=== PATIENT | female | born 1975 | race American Indian/Alaskan Native ===

== ENCOUNTER 2019-09-01 00:54 | Inpatient (IN) | payer SELFPAY ==
[2019-09-01] MEDS ORDERED: IPRATROPIUM 0.02% NEBU 2.5 ML IH ONE (02:31)
[2019-09-01] MEDS ORDERED: LEVALBUTEROL 0.63 MG/3 ML NEBU IH ONE ×2 (02:31→02:46)
[2019-09-01] MEDS ORDERED: fentaNYL 100 MCG/2 ML INJ IV ONE (02:37)
[2019-09-01] MEDS ORDERED: NITROGLYCERIN 2% OINT 1 GM TP ONE (02:37)
[2019-09-01] MEDS ORDERED: ASPIRIN 325 MG TAB PO ONE (02:37)
[2019-09-01] MEDS ORDERED: ONDANSETRON 4 MG/2 ML INJ IV ONE (02:37)
--- NOTE | 2019-09-01 02:45 | Emergency Department Report ---
HPI - General Chief Complaint: Chest Pain Time Seen by Provider: 09/01/19 02:20 - HPI HPI: Room 1 The pt is a 44 y/o F p/w a cc of CP. The pt states she's had intermittent LUE numbness x 1 week. This evening the pt developed intermittent CP described as a tightness and as though something is sitting on her. Pt admits to SOB but denies n/v or diaphoresis. The pt had an PA with stent placement 3 years ago. Pt currntly gives her CP a score of 8/10 ED Past Medical Hx - Past Medical History Previous Medical History?: Yes Hx Hypertension: Yes Hx Heart Attack/AMI: Yes - Surgical History Past Surgical History?: Yes Additional Surgical History: Stent placement - Family History Family history: no significant - Social History Smoking Status: Current Every Day Smoker (/ ppd) Substance Use Type: None (denies illicit drug use) ED Review of Systems ROS: Stated complaint: CHEST PAIN Other details as noted in HPI Constitutional: denies: diaphoresis Eyes: denies: eye pain ENT: denies: throat pain Respiratory: cough, shortness of breath Cardiovascular: chest pain Endocrine: no symptoms reported Gastrointestinal: denies: nausea, vomiting Genitourinary: denies: dysuria Musculoskeletal: denies: back pain Neurological: denies: headache Physical Exam - Physical Exam Vital Signs: Vital Signs 09/01/19 01:05 Temperature 97.8 F Pulse Rate 77 Respiratory 18 Rate Blood Pressure 157/91 O2 Sat by Pulse 100 Oximetry Physical Exam: GEN: WD WN F lying on stretcher in NAD HEENT: EOMI NECK: Trachea midline LUNGS: wheezing bilat CV: RRR no m/r/g ABD: S/NT/ND SKIN: No Diaphoresis NEURO: GCS 15 MS: no evidence of acute injury ED Course Vital Signs 09/01/19 01:05 Temperature 97.8 F Pulse Rate 77 Respiratory 18 Rate Blood Pressure 157/91 O2 Sat by Pulse 100 Oximetry ED Medical Decision Making - Lab Data Result diagrams: 09/01/19 02:41 09/01/19 04:21 Laboratory Tests 09/01/19 09/01/19 09/01/19 02:41 02:41 02:41 WBC 9.9 RBC 5.02 Hgb 11.8 Hct 36.9 MCV 73 L MCH 24 L MCHC 32 RDW 20.8 H Plt Count 232 Lymph % (Auto) 17.9 [place] % (Auto) 5.2 Eos % (Auto) 4.0 Baso % (Auto) 0.9 Lymph # 1.8 [place] # 0.5 Eos # 0.4 Baso # 0.1 Seg Neutrophils % 72.0 H Seg Neutrophils # 7.1 PT 13.3 INR 1.04 APTT 23.5 L Sodium Potassium Chloride Carbon Dioxide Anion Gap BUN Creatinine Estimated GFR BUN/Creatinine Ratio Glucose Calcium Total Creatine Kinase CK-MB (CK-2) CK-MB (CK-2) Rel Index Troponin T NT-Pro-B Natriuret Pep HCG, Qual Negative 09/01/19 04:21 WBC RBC Hgb Hct MCV MCH MCHC RDW Plt Count Lymph % (Auto) [place] % (Auto) Eos % (Auto) Baso % (Auto) Lymph # [place] # Eos # Baso # Seg Neutrophils % Seg Neutrophils # PT INR APTT Sodium 141 Potassium 4.0 Chloride 105.3 Carbon Dioxide 27 Anion Gap 13 BUN 15 Creatinine 0.7 Estimated GFR > 60 BUN/Creatinine Ratio 21 Glucose 88 Calcium 8.5 Total Creatine Kinase 133 CK-MB (CK-2) 3.7 CK-MB (CK-2) Rel Index 2.7 Troponin T < 0.010 NT-Pro-B Natriuret Pep 148.0 HCG, Qual - EKG Data -: EKG Interpreted by Me EKG shows normal: sinus rhythm Rate: normal - EKG Data When compared to previous EKG there are: previous EKG unavailable Interpretation: other (no ischemic changes seen) - Radiology Data Radiology results: report reviewed (cxr), image reviewed (cxr) interpreted by me: CXR- Right hilar fullness. No ptx [facility] [address] [place] [address] XRay Report Signed Patient: BRYANT PRITCHARD MR#: [id number] : 1975 Acct:[id number] Age/Sex: 44 / F ADM Date: 09/01/19 Loc: ED Attending Dr: Ordering Physician: MARCELA FERREIRA MD Date of Service: 09/01/19 Procedure(s): XR chest 1V ap Accession Number(s): [id number] cc: MARCELA FERREIRA MD Fluoro Time In Minutes: CHEST 1 VIEW 09/01/2019 3:59 AM INDICATION / CLINICAL INFORMATION: Chest pain radiating to the left arm. COMPARISON: None available. FINDINGS: SUPPORT DEVICES: None. HEART / MEDIASTINUM: Heart is upper normal size for AP portable technique. LUNGS / PLEURA: Patchy right density in the right infrahilar region could represent early infiltrate. Left lung is clear. No pneumothorax. ADDITIONAL FINDINGS: No significant additional findings. IMPRESSION: 1. Patchy right infrahilar infiltrate could represent early infiltrate. Erect PA and lateral chest radiograph may be helpful when the patient's clinical condition permits. Signer Name: Myla Green MD Signed: 09/01/2019 4:20 AM Workstation Name: [id number] Transcribed By: DT Dictated By: Eloy Green MD Electronically Authenticated By: Eloy Green MD Signed Date/Time: 09/01/19419 DD/ 8 TD/TT: - Differential Diagnosis acs, pna, bronchitis, gerd, pericarditis Critical care attestation.: If time is entered above; I have spent that time in minutes in the direct care of this critically ill patient, excluding procedure time. ED Disposition Clinical Impression: Chest pain Disposition: -09 OP ADMIT IP TO THIS HOSP Is pt being admited?: Yes Does the pt Need Aspirin: Yes Condition: Fair Instructions: Chest Pain (ED) Referrals: PRIMARY CARE, [Primary Care Provider] - 3-5 Days Time of Disposition: 04:59 (hospitalist paged (Dr Neff)) CHEMA score - Chema Score Age > 65: (0) No Aspirin use within the Past 7 Days: (1) Yes 3 or more CAD Risk Factors: (1) Yes 2 or more Angina events in past 24 hrs: (1) Yes Known CAD with more than 50% Stenosis: (1) Yes Elevated Cardiac Markers: (0) No ST Deviation Greater than 0.5mm: (0) No CHEMA Score: 4
[2019-09-01] MEDS ORDERED: LEVALBUTEROL 1.25 MG/3 ML NEB IH ONE (02:52)
[2019-09-01 03:26] LABS: Basophils # (Auto) 0.1 K/mm3 (0.0-0.1); Basophils % (Auto) 0.9 % (0.0-1.8); Eosinophils # (Auto) 0.4 K/mm3 (0.0-0.4); Hematocrit 36.9 % (30.3-42.9); Hemoglobin 11.8 gm/dl (10.1-14.3); Lymphocytes # (Auto) 1.8 K/mm3 (1.2-5.4); Lymphocytes % (Auto) 17.9 % (13.4-35.0); Mean Corpuscular HGB Conc 32 % (30-34); Mean Corpuscular Volume 73 fl (79-97); Monocytes # (Auto) 0.5 K/mm3 (0.0-0.8); Monocytes % (Auto) 5.2 % (0.0-7.3); Platelet Count 232 K/mm3 (140-440); Red Blood Count 5.02 M/mm3 (3.65-5.03)
[2019-09-01 03:29] LABS: Red Cell Distribution Width 20.8 % (13.2-15.2)
[2019-09-01 03:34] LABS: INR 1.04 (0.87-1.13); Partial Thromboplastin Time 23.5 Sec. (24.2-36.6)
--- NOTE | 2019-09-01 04:24 | XRay Report ---
CHEST 1 VIEW 09/01/2019 3:59 AM INDICATION / CLINICAL INFORMATION: Chest pain radiating to the left arm. COMPARISON: None available. FINDINGS: SUPPORT DEVICES: None. HEART / MEDIASTINUM: Heart is upper normal size for AP portable technique. LUNGS / PLEURA: Patchy right density in the right infrahilar region could represent early infiltrate. Left lung is clear. No pneumothorax. ADDITIONAL FINDINGS: No significant additional findings. IMPRESSION: 1. Patchy right infrahilar infiltrate could represent early infiltrate. Erect PA and lateral chest ra diograph may be helpful when the patient's clinical condition permits. Signer Name: Myla Green MD Signed: 09/01/2019 4:20 AM Workstation Name: [id number]
[2019-09-01 04:50] LABS: Creatine Kinase MB 3.7 ng/mL (0.0-4.0)
[2019-09-01 04:53] LABS: BUN/Creatinine Ratio 21; Blood Urea Nitrogen 15 mg/dL (7-17); Calcium 8.5 mg/dL (8.4-10.2); Hemolysis Index 0
[2019-09-01] MEDS ORDERED: ACETAMINOPHEN 325 MG TAB PO PRN (05:24)
[2019-09-01] MEDS ORDERED: ONDANSETRON 4 MG/2 ML INJ IV PRN (05:24)
--- NOTE | 2019-09-01 05:34 | History and Physical Report ---
History of Present Illness Date of examination: 09/01/19 Chief complaint: Chest pain History of present illness: Becky is a 44-year-old female with history of CAD and asthma who presented to the ED on account of a day history of midsternal chest pain. She described it as sharp in character, rated 10 over 10, radiating to the back and constant in duration. No known aggravating or relieving factors. She has associated dry cough, numbness in LT hand and headaches. She has positive chronic bilateral leg swelling. She denies shortness of breath, palpitation, diaphoresis, fever, chills, orthopnea, PND, nausea, vomiting, lightheadedness, syncope or loss of consciousness. Past History Past Medical History: CAD, hypertension, other (obesity, asthma) Past Surgical History: Other (cardiac stent placement 1) Social history: smoking (patient has 2 years history of cigarette smoking and more than 20 yrs history of marijuana use), other (she denies alcohol or other illicit drug use) Family history: CAD (Father had heart attack in his 40's) Medications and Allergies Allergies Allergy/AdvReac Type Severity Reaction Status Date / Time Penicillins Allergy Anaphylaxis Verified 09/01/19 01:28 Active Meds: Active Medications Acetaminophen (Tylenol) 650 mg PO Q4H PRN PRN Reason: Pain MILD(1-3)/Fever >100.5/SOLIS Albuterol/Ipratropium (Duoneb *Not For Prn Use*) 1 ampul IH Q6HRT PENDING SALE TO [facility] Enoxaparin Sodium (Lovenox) 40 mg SUB-Q QDAY PENDING SALE TO [facility] Levofloxacin/Dextrose (Levaquin 750mg/150ml) 750 mg in 150 mls @ 100 mls/hr IV Q24HR PENDING SALE TO [facility]; Protocol Morphine Sulfate (Morphine) 2 mg IV Q4H PRN PRN Reason: Pain , Severe (7-10) Ondansetron HCl (Zofran) 4 mg IV Q8H PRN PRN Reason: Nausea And Vomiting Oxycodone/Acetaminophen (Percocet 5/325) 1 tab PO Q6H PRN PRN Reason: Pain, Moderate (4-6) Sodium Chloride (Sodium Chloride Flush Syringe 10 Ml) 10 ml IV BID PENDING SALE TO [facility] Sodium Chloride (Sodium Chloride Flush Syringe 10 Ml) 10 ml IV PRN PRN PRN Reason: LINE FLUSH Review of Systems All systems: negative (all other systems reviewed with the patient and are negative unless otherwise stated above) Exam - Constitutional Vitals: Temp Pulse Resp BP Pulse Ox 97.8 F 67 18 157/91 100 09/01/19 01:05 09/01/19 02:50 09/01/19 02:50 09/01/19 01:05 09/01/19 01:05 General appearance: Present: no acute distress, obese - EENT Eyes: Present: PERRL, EOM intact ENT: hearing intact, clear oral mucosa - Neck Neck: Present: supple, normal ROM - Respiratory Respiratory effort: normal Respiratory: bilateral: CTA, diminished - Cardiovascular Rhythm: regular Heart Sounds: Present: S1 & S2. Absent: rub, click - Extremities Extremities: pulses symmetrical Extremity abnormal: edema (in BLE) Peripheral Pulses: within normal limits - Abdominal General gastrointestinal: Present: soft, non-tender, non-distended, normal bowel sounds Female genitourinary: Present: deferred - Rectal Rectal Exam: deferred - Integumentary Integumentary: Present: clear, warm, dry - Musculoskeletal Musculoskeletal: gait normal, strength equal bilaterally - Psychiatric Psychiatric: appropriate mood/affect, intact judgment & insight - Neurologic Neurologic: CNII-XII intact, moves all extremities Results - Labs CBC & Chem 7: 09/01/19 02:41 09/01/19 04:21 Labs: Laboratory Last Values WBC 9.9 K/mm3 (4.5-11.0) 09/01/19 02:41 RBC 5.02 M/mm3 (3.65-5.03) 09/01/19 02:41 Hgb 11.8 gm/dl (10.1-14.3) 09/01/19 02:41 Hct 36.9 % (30.3-42.9) 09/01/19 02:41 MCV 73 fl (79-97) L 09/01/19 02:41 MCH 24 pg (28-32) L 09/01/19 02:41 MCHC 32 % (30-34) 09/01/19 02:41 RDW 20.8 % (13.2-15.2) H 09/01/19 02:41 Plt Count 232 K/mm3 (140-440) 09/01/19 02:41 Lymph % (Auto) 17.9 % (13.4-35.0) 09/01/19 02:41 [place] % (Auto) 5.2 % (0.0-7.3) 09/01/19 02:41 Eos % (Auto) 4.0 % (0.0-4.3) 09/01/19 02:41 Baso % (Auto) 0.9 % (0.0-1.8) 09/01/19 02:41 Lymph # 1.8 K/mm3 (1.2-5.4) 09/01/19 02:41 [place] # 0.5 K/mm3 (0.0-0.8) 09/01/19 02:41 Eos # 0.4 K/mm3 (0.0-0.4) 09/01/19 02:41 Baso # 0.1 K/mm3 (0.0-0.1) 09/01/19 02:41 Seg Neutrophils % 72.0 % (40.0-70.0) H 09/01/19 02:41 Seg Neutrophils # 7.1 K/mm3 (1.8-7.7) 09/01/19 02:41 PT 13.3 Sec. (12.2-14.9) 09/01/19 02:41 INR 1.04 (0.87-1.13) 09/01/19 02:41 APTT 23.5 Sec. (24.2-36.6) L 09/01/19 02:41 Sodium 141 mmol/L (137-145) 09/01/19 04:21 Potassium 4.0 mmol/L (3.6-5.0) 09/01/19 04:21 Chloride 105.3 mmol/L (98-107) 09/01/19 04:21 Carbon Dioxide 27 mmol/L (22-30) 09/01/19 04:21 Anion Gap 13 mmol/L 09/01/19 04:21 BUN 15 mg/dL (7-17) 09/01/19 04:21 Creatinine 0.7 mg/dL (0.7-1.2) 09/01/19 04:21 Estimated GFR > 60 ml/min 09/01/19 04:21 BUN/Creatinine Ratio 21 % 09/01/19 04:21 Glucose 88 mg/dL (65-100) 09/01/19 04:21 Calcium 8.5 mg/dL (8.4-10.2) 09/01/19 04:21 Total Creatine Kinase 133 units/L (30-135) 09/01/19 04:21 CK-MB (CK-2) 3.7 ng/mL (0.0-4.0) 09/01/19 04:21 CK-MB (CK-2) Rel Index 2.7 (0-4) 09/01/19 04:21 Troponin T < 0.010 ng/mL (0.00-0.029) 09/01/19 04:21 NT-Pro-B Natriuret Pep 148.0 pg/mL (0-450) 09/01/19 04:21 HCG, Qual Negative (Negative) 09/01/19 02:41 Assessment and Plan Assessment and plan: Acute chest pain likely secondary to pneumonia (CAP) -Portable chest x-ray suspicious for early infiltrate, we will do 2 view chest x-ray -On IV antibiotic with levofloxacin, Mucinex and neb tx -Continue serial troponin level monitoring due to history of CAD Hypertension -Stable Asthma -No acute exacerbation -On neb tx Obesity with BMI of 36.9 -Lifestyle modification recommended Polysubstance abuse (tobacco or marijuana) -Patient counseled on cessation DVT prophylaxis with Lovenox Disposition: Patient will be admitted to observation status for further evaluation and treatment. Time spent: 35 minutes
[2019-09-01] MEDS ORDERED: SODIUM CHLORIDE P/F VIAL 10 ML 10 ML ONE (10:30)
[2019-09-01] MEDS ORDERED: guaiFENesin ER 600 MG TAB PO ONE (10:31)
[2019-09-01] MEDS ORDERED: ENOXAPARIN 40 MG/0.4 ML INJ SUB-Q ONE (10:31)
[2019-09-01] MEDS ORDERED: MORPHINE 2 MG/1 ML INJ ONE (10:32)
[2019-09-01] MEDS: IPRATROPIUM/ALBUTEROL SULFATE 3 ML AMPUL.NEB IH SCH ×3 (10:35→18:59)
[2019-09-01] MEDS: guaiFENesin ER 600 MG TAB PO SCH ×2 (10:40→21:54)
[2019-09-01] MEDS: ENOXAPARIN 40 MG/0.4 ML INJ SUB-Q SCH (10:40)
[2019-09-01] MEDS: MORPHINE 2 MG/1 ML INJ IV PRN ×2 (10:40→18:48)
[2019-09-01] MEDS: oxyCODONE /ACETAMINOPHEN 5-325MG TAB PO PRN ×2 (12:49→23:10)
--- NOTE | 2019-09-01 13:51 | Event Note ---
Date: 09/01/19 Patient seen and examined Labs as reviewed Chest x-ray reviewed Second IMS visit of the day Continue Levaquin Continue neb treatments and antihypertensive medication
[2019-09-01] MEDS: hydrALAZINE 20 MG/1 ML INJ IV PRN (18:38)
[2019-09-01] MEDS: guaiFENesin DM 200/20 MG ORAL LIQD 10 ML PO PRN ×2 (18:47→23:10)
[2019-09-01] MEDS: FAMOTIDINE 20 MG TAB PO SCH (21:54)
[2019-09-02] MEDS: IPRATROPIUM/ALBUTEROL SULFATE 3 ML AMPUL.NEB IH SCH ×4 (01:17→20:39)
[2019-09-02 05:25] LABS: Basophils % (Auto) 0.2 % (0.0-1.8); Eosinophils # (Auto) 0.4 K/mm3 (0.0-0.4); Eosinophils % (Auto) 6.3 % (0.0-4.3); Hematocrit 32.8 % (30.3-42.9); Hemoglobin 10.6 gm/dl (10.1-14.3); Lymphocytes # (Auto) 1.6 K/mm3 (1.2-5.4); Lymphocytes % (Auto) 22.8 % (13.4-35.0); Mean Corpuscular HGB Conc 32 % (30-34); Mean Corpuscular Volume 73 fl (79-97); Monocytes # (Auto) 0.5 K/mm3 (0.0-0.8); Monocytes % (Auto) 6.9 % (0.0-7.3); Platelet Count 207 K/mm3 (140-440); Red Blood Count 4.51 M/mm3 (3.65-5.03)
[2019-09-02 05:32] LABS: Red Cell Distribution Width 20.8 % (13.2-15.2)
[2019-09-02] MEDS: ENOXAPARIN 40 MG/0.4 ML INJ SUB-Q SCH (09:34)
[2019-09-02] MEDS: oxyCODONE /ACETAMINOPHEN 5-325MG TAB PO PRN ×2 (09:34→19:29)
[2019-09-02] MEDS: guaiFENesin ER 600 MG TAB PO SCH ×2 (09:34→21:24)
[2019-09-02] MEDS: FAMOTIDINE 20 MG TAB PO SCH ×2 (09:34→21:24)
[2019-09-02] MEDS: guaiFENesin DM 200/20 MG ORAL LIQD 10 ML PO PRN ×2 (11:31→18:32)
--- NOTE | 2019-09-02 11:46 | Progress Note ---
Assessment and Plan Assessment and plan: Community-acquired pneumonia. Chest x-ray reveals no infiltrate. Continue IV antibiotic with levofloxacin, Mucinex and neb tx Pleurisy. Continue pain medications. Hypertension -Stable Asthma -No acute exacerbation -On neb tx Obesity with BMI of 36.9 -Lifestyle modification recommended Polysubstance abuse (tobacco or marijuana) -Patient counseled on cessation DVT prophylaxis with Lovenox Disposition: Continue inpatient management. History Interval history: Patient complains of pain only with coughing. Hospitalist Physical - Constitutional Vitals: Temp Pulse Resp BP Pulse Ox 98.5 F 78 16 148/79 98 09/02/19 11:14 09/02/19 11:14 09/02/19 11:14 09/02/19 11:14 09/02/19 11:14 General appearance: Present: no acute distress, obese - EENT Eyes: Present: PERRL, EOM intact ENT: hearing intact, clear oral mucosa, dentition normal - Neck Neck: Present: supple, normal ROM - Respiratory Respiratory effort: normal Respiratory: bilateral: CTA - Cardiovascular Rhythm: regular Heart Sounds: Present: S1 & S2. Absent: gallop, rub - Extremities Extremities: no ischemia, No edema, Full ROM - Abdominal General gastrointestinal: soft, non-tender, non-distended, normal bowel sounds - Integumentary Integumentary: Present: clear, warm, dry - Neurologic Neurologic: CNII-XII intact, moves all extremities Results - Labs CBC & Chem 7: 09/02/19 04:46 09/01/19 04:21 Labs: Laboratory Last Values WBC 6.8 K/mm3 (4.5-11.0) 09/02/19 04:46 RBC 4.51 M/mm3 (3.65-5.03) 09/02/19 04:46 Hgb 10.6 gm/dl (10.1-14.3) 09/02/19 04:46 Hct 32.8 % (30.3-42.9) 09/02/19 04:46 MCV 73 fl (79-97) L 09/02/19 04:46 MCH 23 pg (28-32) L 09/02/19 04:46 MCHC 32 % (30-34) 09/02/19 04:46 RDW 20.8 % (13.2-15.2) H 09/02/19 04:46 Plt Count 207 K/mm3 (140-440) 09/02/19 04:46 Lymph % (Auto) 22.8 % (13.4-35.0) 09/02/19 04:46 [place] % (Auto) 6.9 % (0.0-7.3) 09/02/19 04:46 Eos % (Auto) 6.3 % (0.0-4.3) H 09/02/19 04:46 Baso % (Auto) 0.2 % (0.0-1.8) 09/02/19 04:46 Lymph # 1.6 K/mm3 (1.2-5.4) 09/02/19 04:46 [place] # 0.5 K/mm3 (0.0-0.8) 09/02/19 04:46 Eos # 0.4 K/mm3 (0.0-0.4) 09/02/19 04:46 Baso # 0.0 K/mm3 (0.0-0.1) 09/02/19 04:46 Seg Neutrophils % 63.8 % (40.0-70.0) 09/02/19 04:46 Seg Neutrophils # 4.3 K/mm3 (1.8-7.7) 09/02/19 04:46 PT 13.3 Sec. (12.2-14.9) 09/01/19 02:41 INR 1.04 (0.87-1.13) 09/01/19 02:41 APTT 23.5 Sec. (24.2-36.6) L 09/01/19 02:41 Sodium 141 mmol/L (137-145) 09/01/19 04:21 Potassium 4.0 mmol/L (3.6-5.0) 09/01/19 04:21 Chloride 105.3 mmol/L (98-107) 09/01/19 04:21 Carbon Dioxide 27 mmol/L (22-30) 09/01/19 04:21 Anion Gap 13 mmol/L 09/01/19 04:21 BUN 15 mg/dL (7-17) 09/01/19 04:21 Creatinine 0.7 mg/dL (0.7-1.2) 09/01/19 04:21 Estimated GFR > 60 ml/min 09/01/19 04:21 BUN/Creatinine Ratio 21 % 09/01/19 04:21 Glucose 88 mg/dL (65-100) 09/01/19 04:21 Calcium 8.5 mg/dL (8.4-10.2) 09/01/19 04:21 Total Creatine Kinase 133 units/L (30-135) 09/01/19 04:21 CK-MB (CK-2) 3.7 ng/mL (0.0-4.0) 09/01/19 04:21 CK-MB (CK-2) Rel Index 2.7 (0-4) 09/01/19 04:21 Troponin T < 0.010 ng/mL (0.00-0.029) 09/01/19 07:49 NT-Pro-B Natriuret Pep 148.0 pg/mL (0-450) 09/01/19 04:21 HCG, Qual Negative (Negative) 09/01/19 02:41 Active Medications - Current Medications Current Medications: Generic Name Dose Route Start Last Admin Trade Name Freq PRN Reason Stop Dose Admin Acetaminophen 650 mg 09/01/19 05:24 09/02/19 04:00 Tylenol PO 650 mg Q4H PRN Administration Pain MILD(1-3)/Fever >100.5/SOLIS Albuterol/Ipratropium 1 ampul 09/01/19 08:00 09/02/19 08:56 Duoneb *Not For Prn Use* IH 1 ampul Q6HRT JUAN DAVID Administration Enoxaparin Sodium 40 mg 09/01/19 10:00 09/02/19 09:34 Lovenox SUB-Q 40 mg QDAY JUAN DAVID Administration Famotidine 20 mg 09/01/19 22:00 09/02/19 09:34 Pepcid PO 20 mg BID JUAN DAVID Administration Guaifenesin 600 mg 09/01/19 10:00 09/02/19 09:34 Mucinex Er PO 600 mg BID JUAN DAVID Administration Guaifenesin 10 ml 09/01/19 05:29 09/02/19 11:31 Guaifenesin Dm Syrup PO 10 ml Q4H PRN Administration Cough Hydralazine HCl 10 mg 09/01/19 05:42 09/01/19 18:38 Apresoline IV 10 mg Q4HR PRN Administration Blood Pressure Levofloxacin/Dextrose 750 mg in 150 mls @ 100 mls/hr 09/01/19 10:00 09/02/19 09:33 Levaquin 750mg/150ml IV 100 mls/hr Q24HR JUAN DAVID Administration Protocol Morphine Sulfate 2 mg 09/01/19 05:24 09/01/19 18:48 Morphine IV 2 mg Q4H PRN Administration Pain , Severe (7-10) Ondansetron HCl 4 mg 09/01/19 05:24 Zofran IV Q8H PRN Nausea And Vomiting Oxycodone/Acetaminophen 1 tab 09/01/19 05:24 09/02/19 09:34 Percocet 5/325 PO 1 tab Q6H PRN Administration Pain, Moderate (4-6) Sodium Chloride 10 ml 09/01/19 10:00 09/02/19 09:35 Sodium Chloride Flush Syringe 10 Ml IV 10 ml BID JUAN DAVID Administration Sodium Chloride 10 ml 09/01/19 05:24 Sodium Chloride Flush Syringe 10 Ml IV PRN PRN LINE FLUSH
[2019-09-02] MEDS: hydrALAZINE 20 MG/1 ML INJ IV PRN (18:33)
[2019-09-03] MEDS: IPRATROPIUM/ALBUTEROL SULFATE 3 ML AMPUL.NEB IH SCH ×2 (03:30→07:31)
[2019-09-03] MEDS: guaiFENesin DM 200/20 MG ORAL LIQD 10 ML PO PRN ×2 (04:11→09:56)
--- NOTE | 2019-09-03 08:16 | XRay Report ---
CHEST 2 VIEWS INDICATION: Follow up infiltrate.. COMPARISON: 09/01/2019 FINDINGS: Support devices: None. Heart: Within normal limits. Pulmonary vasculature: Normal. Lungs/pleura: Minimal residual patchy opacities in the right infrahilar area on both views. No pneum othorax. Additional findings: None. IMPRESSION: Improvement with minimal residual right lower lobe pneumonia. Signer Name: Gianluca Sage MD Signed: 09/03/2019 8:11 AM Workstation Name: [id number]
--- NOTE | 2019-09-03 08:31 | Discharge Summary ---
Providers - Providers Date of Admission: 09/01/19 08:21 Date of discharge: 09/03/19 Attending physician: BRITNEY SYKES Primary care physician: DOCUMENT MANAGEMENT ANALYST Hospitalization Reason for admission: CAP Condition: Fair Hospital course: 44-year-old female with history of CAD and asthma who presented to the ED on account of a day history of midsternal chest pain. She described it as sharp in character, rated 10 over 10, radiating to the back and constant in duration. No known aggravating or relieving factors. She denied shortness of breath, palpitation, diaphoresis, fever, chills, orthopnea, PND, nausea, vomiting, lightheadedness, syncope or loss of consciousness. Chest x-ray revealed right lower lobe pneumonia. Patient was admitted with diagnosis of community-acquired pneumonia with associated pleuritic chest pain. The patient was treated with IV antibiotics, O2 and nebulized treatments. The patient have follow-up chest x-ray which showed improvement. Therefore, patient is felt to receive maximal hospital benefit and will be discharged home. Dedicated discharge time 35 minutes. Disposition: DC- TO HOME OR SELFCARE - Discharge Diagnoses (1) Pleurisy Status: Acute (2) CAP (community acquired pneumonia) Status: Acute Core Measure Documentation - Palliative Care Palliative Care/ Comfort Measures: Not Applicable - Core Measures Any of the following diagnoses?: none Exam - Constitutional Vitals: Temp Pulse Resp BP Pulse Ox 98.5 F 82 18 187/79 98 09/03/19 03:39 09/03/19 07:32 09/03/19 07:32 09/03/19 03:39 09/03/19 03:39 General appearance: Present: no acute distress, well-nourished - EENT Eyes: Present: PERRL ENT: hearing intact, clear oral mucosa - Neck Neck: Present: supple, normal ROM - Respiratory Respiratory effort: normal Respiratory: bilateral: CTA - Cardiovascular Heart Sounds: Present: S1 & S2. Absent: rub, click - Extremities Extremities: pulses symmetrical, No edema Peripheral Pulses: within normal limits - Abdominal General gastrointestinal: Present: soft, non-tender, non-distended, normal bowel sounds Female genitourinary: Present: normal - Integumentary Integumentary: Present: clear, warm, dry - Musculoskeletal Musculoskeletal: gait normal, strength equal bilaterally - Psychiatric Psychiatric: appropriate mood/affect, intact judgment & insight - Neurologic Neurologic: CNII-XII intact, moves all extremities Plan Activity: advance as tolerated Weight Bearing Status: Weight Bear as Tolerated Diet: regular Follow up with: PRIMARY CARE, [Primary Care Provider] - 3-5 Days Forms: Work/School Release Form Prescriptions: Ciprofloxacin HCl [Ciprofloxacin TAB] 500 mg PO Q12HR #20 tab Lisinopril/Hydrochlorothiazide 10 mg PO ONCE #30 guaiFENesin ER [Mucinex ER] 600 mg PO BID #60 tablet oxyCODONE /ACETAMINOPHEN [Percocet 5/325 mg] 1 tab PO Q6H PRN #12 tablet PRN Reason: Pain, Moderate (4-6)
[2019-09-03] MEDS: oxyCODONE /ACETAMINOPHEN 5-325MG TAB PO PRN (09:40)
[2019-09-03] MEDS: guaiFENesin ER 600 MG TAB PO SCH (09:40)
[2019-09-03] MEDS: hydrALAZINE 20 MG/1 ML INJ IV PRN (09:52)
[2019-09-03] MEDS ORDERED: LISINOPRIL 20 MG TAB PO SCH (10:00)
[2019-09-03] MEDS ORDERED: hydroCHLOROthiazide 25 MG TAB PO SCH (10:00)
[2019-09-03] MEDS: ENOXAPARIN 40 MG/0.4 ML INJ SUB-Q SCH (10:02)
[2019-09-03] MEDS: FAMOTIDINE 20 MG TAB PO SCH (10:02)
[2019-09-03 14:06] VITALS: BP 169/91
== END 2019-09-03 13:45 | disposition home or self-care (01) | DRG 194 ==
LOC: SUATTDRO 00:54 → ED 00:54 → 4A 08:21
PROVIDERS: ADMIT Internal Medicine; ATTEND Hospitalist
DX: J18.1 Lobar pneumonia, unspecified organism (principal); Z68.43 Body mass index [BMI] 50.0-59.9, adult; I25.10 Atherosclerotic heart disease of native coronary artery without angina pectoris; J45.909 Unspecified asthma, uncomplicated; I10 Essential (primary) hypertension; E66.9 Obesity, unspecified; F19.10 Other psychoactive substance abuse, uncomplicated; F17.200 Nicotine dependence, unspecified, uncomplicated; Z71.6 Tobacco abuse counseling; Z95.5 Presence of coronary angioplasty implant and graft; Z82.49 Family history of ischemic heart disease and other diseases of the circulatory system; Z88.0 Allergy status to penicillin; I25.2 Old myocardial infarction
CPT/HCPCS: 36415; 71045; 71046; 80048; 82550; 82553; 83880; 84484; 84703; 85025; 85610; 85730; 93005; 93010; 94640; 94644; 99406; G0378; J0360; J1650; J1956; J2270; J2405; J3010

== ENCOUNTER 2019-12-08 21:18 | Inpatient (IN) | payer OTHER ==
[2019-12-08] MEDS ORDERED: ALBUTEROL 2.5 MG/3 ML NEBU IH ONE ×2 (21:20→22:21)
[2019-12-08] MEDS ORDERED: ONDANSETRON 4 MG/2 ML INJ IV ONE (22:21)
[2019-12-08] MEDS ORDERED: NITROGLYCERIN 2% OINT 1 GM TP ONE (22:21)
[2019-12-08] MEDS ORDERED: fentaNYL 100 MCG/2 ML INJ IV ONE (22:21)
[2019-12-08] MEDS ORDERED: IPRATROPIUM 0.02% NEBU 2.5 ML IH ONE (22:21)
[2019-12-08] MEDS ORDERED: methylPREDNISolone Sod Succinate 125 MG/2 ML INJ IV ONE (22:23)
[2019-12-08] MEDS ORDERED: cloNIDine 0.2 MG TAB PO ONE (22:26)
--- NOTE | 2019-12-08 22:30 | Emergency Department Report ---
HPI - General Chief Complaint: Dyspnea/Respdistress Time Seen by Provider: 12/08/19 22:10 - HPI HPI: Room 4 The patient is a 44-year-old female presenting with a chief complaint of shortness of breath. The patient states his symptoms began Saturday with shortness of breath and a cough productive of clear sputum. States she also developed intermittent substernal chest pain that felt similar to her previous [place]. The patient states she thought her shortness of breath was her asthma hasn't felt the same. The patient went to [facility] emergency department where she had a chest x-ray and labs performed. The patient was discharged home she states she continued to have shortness of breath. The patient states she received a telephone call following day from [place] telling her that she had an enlarged heart. Patient admits to rhinorrhea nausea/vomiting and diaphoresis. States her last cardiac catheterization occurred approximately 3 years ago when she had a cardiac stent placed Location: [See above] Duration: [See above] Quality: [See above] Severity: [See above] Timing: [See above] Context: [See above] Modifying factors: [See above] Associated signs and symptoms: [see above] ED Past Medical Hx - Past Medical History Previous Medical History?: Yes Hx Hypertension: Yes Hx Heart Attack/AMI: Yes Hx Asthma: Yes - Surgical History Past Surgical History?: Yes Additional Surgical History: Cardiac Stent placement - Family History Family history: no significant - Social History Smoking Status: Former Smoker (none since 12/03/2019. History of 1/3 pack per day) Substance Use Type: Marijuana - Medications Home Medications: Home Medications Medication Instructions Recorded Confirmed Last Taken Type Ciprofloxacin HCl [Ciprofloxacin 500 mg PO Q12HR #20 tab 09/03/19 Unknown Rx TAB] Lisinopril/Hydrochlorothiazide 10 mg PO ONCE #30 09/03/19 Unknown Rx guaiFENesin ER [Mucinex ER] 600 mg PO BID #60 tablet 09/03/19 Unknown Rx oxyCODONE /ACETAMINOPHEN [Percocet 1 tab PO Q6H PRN #12 tablet 09/03/19 Unknown Rx 5/325 mg] ED Review of Systems ROS: Stated complaint: DIFF BREATHING Other details as noted in HPI Constitutional: diaphoresis, fever (subjective) Eyes: denies: eye pain ENT: other (rhinorrhea). denies: throat pain Respiratory: cough, shortness of breath, wheezing Cardiovascular: chest pain Endocrine: no symptoms reported Gastrointestinal: nausea, vomiting Genitourinary: denies: dysuria Musculoskeletal: denies: back pain Neurological: denies: headache Physical Exam - Physical Exam Vital Signs: Vital Signs 12/08/19 22:00 Pulse Rate 91 H Respiratory 22 Rate Blood Pressure 181/97 [Left] O2 Sat by Pulse 98 Oximetry Physical Exam: GENERAL: The patient is well-developed well-nourished female sitting on stretcher exhibiting increased work of breathing. [] HEENT: Normocephalic. Atraumatic. Extraocular motions are intact. Patient has moist mucous membranes. NECK: Supple. Trachea midline CHEST/LUNGS: Occasional rhonchi. There is increased work of breathing HEART/CARDIOVASCULAR: Regular. There is no tachycardia. There is no gallop rub or murmur. ABDOMEN: Abdomen is soft, nontender. Patient has normal bowel sounds. There is no abdominal distention. SKIN: There is no rash. There is trace bilateral lower extremity edema. There is no diaphoresis. NEURO: The patient is awake, alert, and oriented. The patient is cooperative. The patient has normal speech MUSCULOSKELETAL: There is no evidence of acute injury. ED Course Vital Signs 12/08/19 22:00 Pulse Rate 91 H Respiratory 22 Rate Blood Pressure 181/97 [Left] O2 Sat by Pulse 98 Oximetry - Reevaluation(s) Reevaluation #1: 12/09/19 00:20 Patient states she feels unchanged despite medications. Patient still complains shortness breath. Will admit for further evaluation ED Medical Decision Making - Lab Data Result diagrams: 12/08/19 22:44 12/08/19 22:44 Laboratory Tests 12/08/19 12/08/19 12/08/19 22:44 22:44 22:44 WBC 8.0 RBC 4.67 Hgb 11.1 Hct 33.9 MCV 73 L MCH 24 L MCHC 33 RDW 19.5 H Plt Count 224 Lymph % (Auto) 8.0 L [place] % (Auto) 9.5 H Eos % (Auto) 0.2 Baso % (Auto) 0.2 Lymph # 0.6 L [place] # 0.8 Eos # 0.0 Baso # 0.0 Seg Neutrophils % 82.1 H Seg Neutrophils # 6.6 PT 13.5 INR 1.02 Sodium 134 L Potassium 4.1 Chloride 97.0 L Carbon Dioxide 24 Anion Gap 17 BUN 14 Creatinine 0.7 Estimated GFR > 60 BUN/Creatinine Ratio 20 Glucose 94 Calcium 8.8 Total Bilirubin 0.20 AST 26 ALT 18 Alkaline Phosphatase 58 Total Creatine Kinase 499 H CK-MB (CK-2) 4.2 H CK-MB (CK-2) Rel Index 0.8 Troponin T < 0.010 NT-Pro-B Natriuret Pep 239.7 Total Protein 7.0 Albumin 3.6 L Albumin/Globulin Ratio 1.1 HCG, Qual Influenza A (Rapid) Influenza B (Rapid) 12/08/19 12/08/19 22:44 23:20 WBC RBC Hgb Hct MCV MCH MCHC RDW Plt Count Lymph % (Auto) [place] % (Auto) Eos % (Auto) Baso % (Auto) Lymph # [place] # Eos # Baso # Seg Neutrophils % Seg Neutrophils # PT INR Sodium Potassium Chloride Carbon Dioxide Anion Gap BUN Creatinine Estimated GFR BUN/Creatinine Ratio Glucose Calcium Total Bilirubin AST ALT Alkaline Phosphatase Total Creatine Kinase CK-MB (CK-2) CK-MB (CK-2) Rel Index Troponin T NT-Pro-B Natriuret Pep Total Protein Albumin Albumin/Globulin Ratio HCG, Qual Negative Influenza A (Rapid) Negative Influenza B (Rapid) Positive A - EKG Data -: EKG Interpreted by Me EKG shows normal: sinus rhythm Rate: normal - EKG Data When compared to previous EKG there are: previous EKG unavailable Interpretation: other (Q-wave lead 3) - Radiology Data Radiology results: report reviewed (chest x-ray), image reviewed (chest x-ray) interpreted by me: Chest x-ray-no definite focal infiltrates. Cardiomegaly. No pneumothorax [facility] [address] [place] [address] XRay Report Signed Patient: BRYANT PRITCHARD MR#: [id number] : 1975 Acct:[id number] Age/Sex: 44 / F ADM Date: 12/08/19 Loc: ED Attending Dr: Ordering Physician: MARCELA FERREIRA MD Date of Service: 12/08/19 Procedure(s): XR chest 1V ap Accession Number(s): [id number] cc: MARCELA FERREIRA MD Fluoro Time In Minutes: CHEST 1 VIEW, 12/08/2019 11:01 PM CLINICAL INFORMATION/INDICATION: Chest pain. Shortness of breath. COMPARISON: Chest radiograph, 09/03/2019 FINDINGS: SUPPORT DEVICES: None. HEART: The cardiac silhouette remains normal in size. LUNGS/PLEURA: There is prominence of the right perihilar region, similar to the previous study. The left lung appears grossly clear. ADDITIONAL FINDINGS: No additional acute findings. IMPRESSION: 1. Prominent right perihilar region which is similar to the previous study. Recurrent pneumonia would be a consideration. Close clinical and radiographic follow-up is recommended. Signer Name: Laura Kothari MD Signed: 12/08/2019 11:42 PM Workstation Name: [id number] Transcribed By: EB Dictated By: Laura Kothari MD Electronically Authenticated By: Laura Kothari MD Signed Date/Time: 12/08/192341 DD/ 39 TD/TT: - Differential Diagnosis CHF, asthma exacerbation, ACS, pericarditis, myocarditis Critical care attestation.: If time is entered above; I have spent that time in minutes in the direct care of this critically ill patient, excluding procedure time. ED Disposition Clinical Impression: Chest pain, Shortness of breath, Influenza Disposition: 09 OP ADMIT IP TO THIS HOSP Is pt being admited?: Yes Does the pt Need Aspirin: Yes Condition: Fair Instructions: Chest Pain (ED) Time of Disposition: 00:21 (hospitalist paged (Dr Maguire))
[2019-12-08] MEDS ORDERED: IPRATROPIUM/ALBUTEROL SULFATE 3 ML AMPUL.NEB IH ONE (23:20)
[2019-12-08 23:28] LABS: Basophils % (Auto) 0.2 % (0.0-1.8); Eosinophils % (Auto) 0.2 % (0.0-4.3); Hematocrit 33.9 % (30.3-42.9); Hemoglobin 11.1 gm/dl (10.1-14.3); Lymphocytes # (Auto) 0.6 K/mm3 (1.2-5.4); Mean Corpuscular HGB Conc 33 % (30-34); Mean Corpuscular Volume 73 fl (79-97); Monocytes # (Auto) 0.8 K/mm3 (0.0-0.8); Monocytes % (Auto) 9.5 % (0.0-7.3); Platelet Count 224 K/mm3 (140-440); Red Blood Count 4.67 M/mm3 (3.65-5.03); Red Cell Distribution Width 19.5 % (13.2-15.2)
[2019-12-08 23:40] LABS: INR 1.02 (0.87-1.13)
--- NOTE | 2019-12-08 23:46 | XRay Report ---
CHEST 1 VIEW, 12/08/2019 11:01 PM CLINICAL INFORMATION/INDICATION: Chest pain. Shortness of breath. COMPARISON: Chest radiograph, 09/03/2019 FINDINGS: SUPPORT DEVICES: None. HEART: The cardiac silhouette remains normal in size. LUNGS/PLEURA: There is prominence of the right perihilar region, similar to the previous study. The l eft lung appears grossly clear. ADDITIONAL FINDINGS: No additional acute findings. IMPRESSION: 1. Prominent right perihilar region which is similar to the previous study. Recurrent pneumonia would be a consideration. Close clinical and radiographic follow-up is recommended. Signer Name: Laura Kothari MD Signed: 12/08/2019 11:42 PM Workstation Name: [id number]
[2019-12-08 23:49] LABS: Creatine Kinase MB 4.2 ng/mL (0.0-4.0)
[2019-12-08 23:50] LABS: Alanine Aminotransferase 18 units/L (7-56); Albumin 3.6 g/dL (3.9-5); BUN/Creatinine Ratio 20; Blood Urea Nitrogen 14 mg/dL (7-17); Calcium 8.8 mg/dL (8.4-10.2); Hemolysis Index 1
[2019-12-09] MEDS ORDERED: ASPIRIN 325 MG TAB PO ONE (00:21)
[2019-12-09] MEDS: OSELTAMIVIR 75 MG CAP PO SCH ×3 (01:00→22:31)
--- NOTE | 2019-12-09 01:00 | History and Physical Report ---
History of Present Illness Date of examination: 12/09/19 Date of admission: 12/09/2019 Chief complaint: Chest pain x3 days History of present illness: Patient is a 44-year-old female with a past medical history of CAD, hypertension and asthma whom presents to ER with complaints of chest pain and shortness of breath x3 days. Patient was [facility] at [facility]2019 and discharged same day for similar symptoms. Patient describes her midsternal chest pain as sharp, non-radiating and rates it 7 out of 10. She denies palpitation, lightheadedness, syncope or loss of consciousness. Past History Past Medical History: CAD, hypertension, other (obesity, asthma) Past Surgical History: Other (cardiac stent placement 1) Social history: smoking (reed has 3 year history of cigarette smoking and 20 yrs history of marijuana use), other Family history: CAD Medications and Allergies Allergies Allergy/AdvReac Type Severity Reaction Status Date / Time Penicillins Allergy Anaphylaxis Verified 09/01/19 01:28 Home Medications Medication Instructions Recorded Confirmed Last Taken Type Lisinopril/Hydrochlorothiazide 10 mg PO ONCE #30 09/03/19 12/09/19 Unknown Rx guaiFENesin ER [Mucinex ER] 600 mg PO BID #60 tablet 09/03/19 12/09/19 Unknown Rx oxyCODONE /ACETAMINOPHEN [Percocet 1 tab PO Q6H PRN #12 tablet 09/03/19 12/09/19 Unknown Rx 5/325 mg] Active Meds: Active Medications Oseltamivir Phosphate (Tamiflu) 75 mg PO BID JUAN DAVID Stop: 12/13/19 10:01 Review of Systems All systems: negative Constitutional: no daytime sleepiness, no chronic pain Ears, nose, mouth and throat: no hoarseness, no sore throat, no swelling in mouth Breasts: no skin changes, no Cardiovascular: chest pain, dyspnea on exertion, high blood pressure Respiratory: cough, shortness of breath Gastrointestinal: no melena, no hematochezia Genitourinary Female: no flank pain, no dysuria Rectal: no pain, no incontinence Musculoskeletal: no hot joints, no muscle weakness Integumentary: no jaundice, no unusual bruising Neurological: no head injury, no transient paralysis, no paralysis Psychiatric: no hypersomnia, no change in libido, no hopelessness, no difficulties concentrating Endocrine: no deepening of the voice, no high blood sugars, no low blood sugars Hematologic/Lymphatic: no easy bleeding, no lymphadenopathy Allergic/Immunologic: no wheezing, no anaphylaxis, no seasonal allergies Exam - Physical Exam Narrative exam: General appearance: Present: no acute distress, obese - EENT Eyes: Present: PERRL, EOM intact ENT: hearing intact, clear oral mucosa - Neck Neck: Present: supple, normal ROM - Respiratory Respiratory effort: normal Respiratory: bilateral: diminished - Cardiovascular Rhythm: regular Heart Sounds: Present: S1 & S2. Absent: rub, click - Extremities Extremities: pulses symmetrical Extremity abnormal: edema (in BLE) Peripheral Pulses: within normal limits - Abdominal General gastrointestinal: Present: soft, non-tender, non-distended, normal bowel sounds Female genitourinary: Present: deferred - Rectal Rectal Exam: deferred - Integumentary Integumentary: Present: clear, warm, dry - Musculoskeletal Musculoskeletal: gait normal, strength equal bilaterally - Psychiatric Psychiatric: appropriate mood/affect, intact judgment & insight - Neurologic Neurologic: CNII-XII intact, moves all extremities - Constitutional Vitals: Temp Pulse Resp BP Pulse Ox 91 H 25 H 176/93 98 12/08/19 23:07 12/08/19 22:38 12/08/19 23:07 12/08/19 22:00 Results - Labs CBC & Chem 7: 12/08/19 22:44 12/08/19 22:44 Labs: Laboratory Last Values WBC 8.0 K/mm3 (4.5-11.0) 12/08/19 22:44 RBC 4.67 M/mm3 (3.65-5.03) 12/08/19 22:44 Hgb 11.1 gm/dl (10.1-14.3) 12/08/19 22:44 Hct 33.9 % (30.3-42.9) 12/08/19 22:44 MCV 73 fl (79-97) L 12/08/19 22:44 MCH 24 pg (28-32) L 12/08/19 22:44 MCHC 33 % (30-34) 12/08/19 22:44 RDW 19.5 % (13.2-15.2) H 12/08/19 22:44 Plt Count 224 K/mm3 (140-440) 12/08/19 22:44 Lymph % (Auto) 8.0 % (13.4-35.0) L 12/08/19 22:44 [place] % (Auto) 9.5 % (0.0-7.3) H 12/08/19 22:44 Eos % (Auto) 0.2 % (0.0-4.3) 12/08/19 22:44 Baso % (Auto) 0.2 % (0.0-1.8) 12/08/19 22:44 Lymph # 0.6 K/mm3 (1.2-5.4) L 12/08/19 22:44 [place] # 0.8 K/mm3 (0.0-0.8) 12/08/19 22:44 Eos # 0.0 K/mm3 (0.0-0.4) 12/08/19 22:44 Baso # 0.0 K/mm3 (0.0-0.1) 12/08/19 22:44 Seg Neutrophils % 82.1 % (40.0-70.0) H 12/08/19 22:44 Seg Neutrophils # 6.6 K/mm3 (1.8-7.7) 12/08/19 22:44 PT 13.5 Sec. (12.2-14.9) 12/08/19 22:44 INR 1.02 (0.87-1.13) 12/08/19 22:44 Sodium 134 mmol/L (137-145) L 12/08/19 22:44 Potassium 4.1 mmol/L (3.6-5.0) 12/08/19 22:44 Chloride 97.0 mmol/L (98-107) L 12/08/19 22:44 Carbon Dioxide 24 mmol/L (22-30) 12/08/19 22:44 Anion Gap 17 mmol/L 12/08/19 22:44 BUN 14 mg/dL (7-17) 12/08/19 22:44 Creatinine 0.7 mg/dL (0.7-1.2) 12/08/19 22:44 Estimated GFR > 60 ml/min 12/08/19 22:44 BUN/Creatinine Ratio 20 % 12/08/19 22:44 Glucose 94 mg/dL (65-100) 12/08/19 22:44 Calcium 8.8 mg/dL (8.4-10.2) 12/08/19 22:44 Total Bilirubin 0.20 mg/dL (0.1-1.2) 12/08/19 22:44 AST 26 units/L (5-40) 12/08/19 22:44 ALT 18 units/L (7-56) 12/08/19 22:44 Alkaline Phosphatase 58 units/L (35-129) 12/08/19 22:44 Total Creatine Kinase 499 units/L (30-135) H 12/08/19 22:44 CK-MB (CK-2) 4.2 ng/mL (0.0-4.0) H 12/08/19 22:44 CK-MB (CK-2) Rel Index 0.8 (0-4) 12/08/19 22:44 Troponin T < 0.010 ng/mL (0.00-0.029) 12/08/19 22:44 NT-Pro-B Natriuret Pep 239.7 pg/mL (0-450) 12/08/19 22:44 Total Protein 7.0 g/dL (6.3-8.2) 12/08/19 22:44 Albumin 3.6 g/dL (3.9-5) L 12/08/19 22:44 Albumin/Globulin Ratio 1.1 % 12/08/19 22:44 HCG, Qual Negative (Negative) 12/08/19 22:44 Influenza A (Rapid) Negative (Negative) 12/08/19 23:20 Influenza B (Rapid) Positive (Negative) A 12/08/19 23:20 - Imaging and Cardiology EKG: report reviewed (Sinus rhythm, old infarct) Chest x-ray: report reviewed (Prominent right perihilar region which is similar to the previous study. Recurrent pneumonia ) Assessment and Plan Assessment and plan: Acute chest pain likely secondary to pneumonia (CAP) -Portable chest x-ray suspicious for Recurrent pneumonia; Levaquin empirical -Continue serial troponin level monitoring due to history of CAD -Cardiology consulted Influenza A -cont Tamiflu Hypertension -Stable -Resume home meds once reconciled Asthma -No acute exacerbation -On neb tx Obesity with BMI of 41.8 -Lifestyle modification recommended Polysubstance abuse (tobacco or marijuana) -Patient counseled on cessation DVT -SCD bilateral -prophylaxis with Lovenox Advance Directives: Yes VTE prophylaxis?: Chemical Plan of care discussed with patient/family: Yes
[2019-12-09] MEDS ORDERED: ONDANSETRON 4 MG/2 ML INJ IV PRN (01:01)
[2019-12-09] MEDS ORDERED: ACETAMINOPHEN 325 MG TAB PO PRN (01:01)
[2019-12-09] MEDS ORDERED: IPRATROPIUM/ALBUTEROL SULFATE 3 ML AMPUL.NEB IH ONE (02:54)
[2019-12-09] MEDS ORDERED: ACETAMINOPHEN 325 MG TAB ONE (08:11)
[2019-12-09 08:27] LABS: Creatine Kinase MB 3.4 ng/mL (0.0-4.0)
[2019-12-09] MEDS ORDERED: ENOXAPARIN 30 MG/0.3 ML INJ SUB-Q SCH (10:00)
[2019-12-09] MEDS ORDERED: ENOXAPARIN 40 MG/0.4 ML INJ SUB-Q ONE (11:04)
--- NOTE | 2019-12-09 11:53 | Consultation ---
History of Present Illness - Reason for Consult Consult date: 12/09/19 Influenza, pneumonia Requesting physician: TAYA DOYLE - History of Present Illness The patient is a 44-year-old female with coronary artery disease, hypertension, asthma who came into the emergency room today with complaints of chest pain and shortness of breath going on for about one and a half week. She was seen in [facility] emergency room on 12/06/2019 with similar complaints, diagnosed with asthma exacerbation and discharged home. She also had been seen on 11/13/2019 with similar complaints and was diagnosed with bronchitis and pneumonia, was given for Medrol Dosepak and albuterol. She was diagnosed with a pneumonia in October 2019, seen in the ER at [facility] and was given Medrol Dosepak and azithromycin. She is a smoker. Currently complaining of bodyaches, fever. She did not take the flu-shot this year. Review of Systems: General: fever + HEENT: no new visual disturbance Respiratory: cough, shortness of breath, wheezes Cardiovascular: No chest pain, syncope Gastrointestinal: No nausea, vomiting or diarrhea Genitourinary: No dysuria or hematuria Musculoskeletal: No new or worsening neck pain or back pain Neurologic: No headaches, seizures Hematologic: No easy bruising or bleeding Endocrine: No night sweats or acute weight loss Skin: negative for rash, jaundice Psychiatric: No suicidal or homicidal ideation Past History Past Medical History: CAD, hypertension, other (obesity, asthma) Past Surgical History: Other (cardiac stent placement 1) Social history: smoking (reed has 3 year history of cigarette smoking and 20 yrs history of marijuana use), other Family history: CAD Medications and Allergies Allergies Allergy/AdvReac Type Severity Reaction Status Date / Time Penicillins Allergy Anaphylaxis Verified 09/01/19 01:28 Home Medications Medication Instructions Recorded Confirmed Last Taken Type Lisinopril/Hydrochlorothiazide 10 mg PO ONCE #30 09/03/19 12/09/19 Unknown Rx guaiFENesin ER [Mucinex ER] 600 mg PO BID #60 tablet 09/03/19 12/09/19 Unknown Rx oxyCODONE /ACETAMINOPHEN [Percocet 1 tab PO Q6H PRN #12 tablet 09/03/19 12/09/19 Unknown Rx 5/325 mg] Active Meds: Active Medications Acetaminophen (Tylenol) 650 mg PO Q4H PRN PRN Reason: Pain MILD(1-3)/Fever >100.5/SOLIS Last Admin: 12/09/19 08:14 Dose: 650 mg Documented by: Albuterol (Proventil) 2.5 mg IH Q4HRT PRN PRN Reason: Shortness Of Breath Enoxaparin Sodium (Enoxaparin) 40 mg SUB-Q QDAY@1000 JUAN DAVID Levofloxacin/Dextrose (Levaquin 750mg/150ml) 750 mg in 150 mls @ 100 mls/hr IV Q24HR [facility]; Protocol Stop: 12/14/19 09:59 Morphine Sulfate (Morphine) 2 mg IV Q4H PRN PRN Reason: Pain, Moderate (4-6) Ondansetron HCl (Zofran) 4 mg IV Q8H PRN PRN Reason: Nausea And Vomiting Oseltamivir Phosphate (Tamiflu) 75 mg PO BID [facility] Stop: 12/13/19 10:01 Last Admin: 12/09/19 01:00 Dose: 75 mg Documented by: Sodium Chloride (Sodium Chloride Flush Syringe 10 Ml) 10 ml IV BID [facility] Sodium Chloride (Sodium Chloride Flush Syringe 10 Ml) 10 ml IV PRN PRN PRN Reason: LINE FLUSH Physical Examination - Physical Exam Narrative exam: Physical Exam: Constitutional: Alert, cooperative. No acute distress. Obese Head, Ears, Nose: Normocephalic, atraumatic. External ears, nose normal Eyes: Conjunctivae/corneas clear. No icterus. No ptosis. Neck: Supple, no meningeal signs Oral: dentition fair, no thrush Cardiovascular: S1, S2 normal. Respiratory: b/l wheezes + GI: Soft, non-tender; bowel sounds normal. No peritoneal signs Musculoskeletal: No pedal edema, no cyanosis. Skin: No rash or abscess Hem/Lymphatic: No palpable cervical or supraclavicular nodes. No lymphangitis Psych: Mood ok. Affect normal Neurological: Awake, alert, oriented. No gross abnormality - Constitutional Vitals: Vital Signs Temp Pulse Resp BP Pulse Ox 91 H 25 H 148/85 94 12/08/19 23:07 12/08/19 22:38 12/09/19 05:45 12/09/19 05:45 Results - Labs CBC & Chem 7: 12/08/19 22:44 12/08/19 22:44 Labs: Abnormal lab results 12/08/19 12/08/19 12/08/19 Range/Units 22:44 22:44 23:20 MCV 73 L (79-97) fl MCH 24 L (28-32) pg RDW 19.5 H (13.2-15.2) % Lymph % (Auto) 8.0 L (13.4-35.0) % [place] % (Auto) 9.5 H (0.0-7.3) % Lymph # 0.6 L (1.2-5.4) K/mm3 Seg Neutrophils % 82.1 H (40.0-70.0) % Sodium 134 L (137-145) mmol/L Chloride 97.0 L (98-107) mmol/L Total Creatine Kinase 499 H (30-135) units/L CK-MB (CK-2) 4.2 H (0.0-4.0) ng/mL Albumin 3.6 L (3.9-5) g/dL Influenza B (Rapid) Positive A (Negative) 12/09/19 Range/Units 07:31 MCV (79-97) fl MCH (28-32) pg RDW (13.2-15.2) % Lymph % (Auto) (13.4-35.0) % [place] % (Auto) (0.0-7.3) % Lymph # (1.2-5.4) K/mm3 Seg Neutrophils % (40.0-70.0) % Sodium (137-145) mmol/L Chloride (98-107) mmol/L Total Creatine Kinase 290 H (30-135) units/L CK-MB (CK-2) (0.0-4.0) ng/mL Albumin (3.9-5) g/dL Influenza B (Rapid) (Negative) - Imaging and Cardiology Chest x-ray: report reviewed, image reviewed (Chest x-ray shows small right perihilar opacity) Assessment and Plan Cultures: 12/08/2019 Rapid influenza: Positive for influenza B A/P: 44-year-old female with coronary artery disease, hypertension, asthma, tobacco abuse with: #Influenza B #Pneumonia: CXR with small right sided perihilar infiltrate. #Acute respiratory failure, asthma exacerbation: on oxygen, nebs #Morbid obesity #Tobacco abuse Recs: PO Tamiflu x 5 days since she is hospitalized. Symptoms going on for several days prior to admission, so may not get full benefit from it. procalcitonin ordered continue levofloxacin 750 mg daily for now d/w Dr. Hussein Hall MD, FACP [facility] ([facility]) C: [phone] O: [phone] F: [phone]
[2019-12-09] MEDS ORDERED: MORPHINE 2 MG/1 ML INJ ONE ×2 (12:21→19:55)
[2019-12-09] MEDS: ENOXAPARIN 40 MG/0.4 ML INJ SUB-Q SCH (12:24)
[2019-12-09] MEDS: MORPHINE 2 MG/1 ML INJ IV PRN ×3 (12:25→23:54)
--- NOTE | 2019-12-09 13:08 | Consultation ---
History of Present Illness Consult date: 12/09/19 Requesting physician: MOIRA VIVEROS Consult reason: chest pain History of present illness: The patient is a 44-year-old female with a past medical history of CAD s/p reported AMI with PCI 3 years ago at [facility], HTN, asthma and tobacco use. She is previously unknown to our practice. She presented with c/o flu-like symptoms ( body aches, fever, chills, SOB, dry cough) and pleuritic chest pain for the past 1 week. She describes her chest pain as a sharp intermittent pain which is aggravated by coughing, deep inspiration and palpation of the chest wall. She was seen in [facility] emergency room on 12/06/2019 with similar complaints, diagnosed with asthma exacerbation and discharged home. She is noted to be positive for influenza A and has suspected PNA. Past History Past Medical History: CAD, hypertension, other (obesity, asthma) Past Surgical History: Other (cardiac stent placement 1) Social history: smoking (reed has 3 year history of cigarette smoking and 20 yrs history of marijuana use), other Family history: CAD Medications and Allergies Allergies Allergy/AdvReac Type Severity Reaction Status Date / Time Penicillins Allergy Anaphylaxis Verified 09/01/19 01:28 Home Medications Medication Instructions Recorded Confirmed Last Taken Type Lisinopril/Hydrochlorothiazide 10 mg PO ONCE #30 09/03/19 12/09/19 Unknown Rx guaiFENesin ER [Mucinex ER] 600 mg PO BID #60 tablet 09/03/19 12/09/19 Unknown Rx oxyCODONE /ACETAMINOPHEN [Percocet 1 tab PO Q6H PRN #12 tablet 09/03/19 12/09/19 Unknown Rx 5/325 mg] Active Meds: Active Medications Acetaminophen (Tylenol) 650 mg PO Q4H PRN PRN Reason: Pain MILD(1-3)/Fever >100.5/SOLIS Last Admin: 12/09/19 08:14 Dose: 650 mg Documented by: Albuterol (Proventil) 2.5 mg IH Q4HRT PRN PRN Reason: Shortness Of Breath Enoxaparin Sodium (Enoxaparin) 40 mg SUB-Q QDAY@1000 JUAN DAVID Last Admin: 12/09/19 12:24 Dose: 40 mg Documented by: Levofloxacin/Dextrose (Levaquin 750mg/150ml) 750 mg in 150 mls @ 100 mls/hr IV Q24HR [facility]; Protocol Stop: 12/14/19 09:59 Last Admin: 12/09/19 12:25 Dose: 100 mls/hr Documented by: Morphine Sulfate (Morphine) 2 mg IV Q4H PRN PRN Reason: Pain, Moderate (4-6) Last Admin: 12/09/19 12:25 Dose: 2 mg Documented by: Ondansetron HCl (Zofran) 4 mg IV Q8H PRN PRN Reason: Nausea And Vomiting Oseltamivir Phosphate (Tamiflu) 75 mg PO BID [facility] Stop: 12/13/19 10:01 Last Admin: 12/09/19 12:24 Dose: 75 mg Documented by: Sodium Chloride (Sodium Chloride Flush Syringe 10 Ml) 10 ml IV BID [facility] Last Admin: 12/09/19 12:24 Dose: 10 ml Documented by: Sodium Chloride (Sodium Chloride Flush Syringe 10 Ml) 10 ml IV PRN PRN PRN Reason: LINE FLUSH Review of Systems Constitutional: fever, chills, no weight loss, no weight gain Ears, nose, mouth and throat: no ear pain, no nose pain, no sinus pressure, no s inus pain Cardiovascular: chest pain, shortness of breath, dyspnea on exertion, no orthopnea, no palpitations, no rapid/irregular heart beat, no edema, no syncope, no lightheadedness, no leg edema Respiratory: cough, shortness of breath, dyspnea on exertion, congestion, wheezing, pain on inspiration Gastrointestinal: no abdominal pain, no nausea, no vomiting, no diarrhea, no constipation, no change in bowel habits Genitourinary Female: no pelvic pain, no flank pain, no dysuria, no urinary frequency, no urgency Musculoskeletal: no neck stiffness, no neck pain, no shooting arm pain, no arm numbness/tingling, no low back pain, no shooting leg pain Integumentary: no rash, no pruritis, no redness, no sores, no wounds Neurological: no head injury, no paralysis, no weakness, no parathesias, no numbness Psychiatric: no anxiety Endocrine: no cold intolerance, no heat intolerance Hematologic/Lymphatic: no easy bruising, no easy bleeding Allergic/Immunologic: no urticaria, no wheezing Physical Examination Vital Signs Pulse Resp BP Pulse Ox 91 H 22 181/97 98 12/08/19 22:00 12/08/19 22:00 12/08/19 22:00 12/08/19 22:00 General appearance: no acute distress HEENT: Positive: PERRL, Normocephaly, Mucus Membranes Moist Neck: Positive: neck supple, trachea midline Cardiac: Positive: Reg Rate and Rhythm, S1/S2 Lungs: Positive: Decreased Breath Sounds, Wheezes, Rhonchi Neuro: Positive: Grossly Intact Abdomen: Negative: Tender Skin: Negative: Rash Musculoskeletal: No Pain Extremities: Absent: edema Results 12/08/19 22:44 12/08/19 22:44 Cardiac Enzymes 12/08/19 12/09/19 Range/Units 22:44 07:31 AST 26 (5-40) units/L CK-MB (CK-2) 4.2 H 3.4 (0.0-4.0) ng/mL Coagulation 12/08/19 Range/Units 22:44 PT 13.5 (12.2-14.9) Sec. INR 1.02 (0.87-1.13) CBC 12/08/19 Range/Units 22:44 WBC 8.0 (4.5-11.0) K/mm3 RBC 4.67 (3.65-5.03) M/mm3 Hgb 11.1 (10.1-14.3) gm/dl Hct 33.9 (30.3-42.9) % Plt Count 224 (140-440) K/mm3 Lymph # 0.6 L (1.2-5.4) K/mm3 [place] # 0.8 (0.0-0.8) K/mm3 Eos # 0.0 (0.0-0.4) K/mm3 Baso # 0.0 (0.0-0.1) K/mm3 Comprehensive Metabolic Panel 12/08/19 Range/Units 22:44 Sodium 134 L (137-145) mmol/L Potassium 4.1 (3.6-5.0) mmol/L Chloride 97.0 L (98-107) mmol/L Carbon Dioxide 24 (22-30) mmol/L BUN 14 (7-17) mg/dL Creatinine 0.7 (0.7-1.2) mg/dL Glucose 94 (65-100) mg/dL Calcium 8.8 (8.4-10.2) mg/dL AST 26 (5-40) units/L ALT 18 (7-56) units/L Alkaline Phosphatase 58 (35-129) units/L Total Protein 7.0 (6.3-8.2) g/dL Albumin 3.6 L (3.9-5) g/dL - Imaging and Cardiology Echo: pending EKG: report reviewed, image reviewed EKG interpretations - Telemetry EKG Rhythm: Sinus Rhythm - EKG Sinus rhythms and dysrhythmias: sinus rhythm Assessment and Plan AMI ruled out. Pt's chest pain appears pleuritic in etiology. Pt with influenza, suspected PNA and asthma exacerbation. ID following. Obtain echo. Plan for lexiscan MPI stress test once medically stabilized - likely Saturday. The patient has been seen in conjunction with Dr. Jordan who agrees with the assessment and plan of care. - Patient Problems (1) Chest pain Current Visit: Yes Status: Acute (2) Influenza Current Visit: Yes Status: Acute (3) Pneumonia Current Visit: Yes Status: Suspected (4) Asthma exacerbation Current Visit: Yes Status: Acute (5) CAD (coronary artery disease) Current Visit: Yes Status: Chronic (6) Stented coronary artery Current Visit: Yes Status: Chronic (7) HTN (hypertension) Current Visit: Yes Status: Chronic (8) Tobacco use Current Visit: Yes Status: Chronic
[2019-12-09] MEDS ORDERED: ALBUTEROL 2.5 MG/3 ML NEBU IH ONE ×2 (16:41→23:20)
[2019-12-09] MEDS: ALBUTEROL 2.5 MG/3 ML NEBU IH PRN ×2 (16:44→22:37)
[2019-12-09] MEDS ORDERED: FAMOTIDINE 20 MG TAB ONE (19:54)
[2019-12-09] MEDS: FAMOTIDINE 20 MG TAB PO SCH (19:57)
--- NOTE | 2019-12-09 21:13 | Event Note ---
Date: 12/09/19 Patient was admitted this morning; 44-year-old female patient with multiple medical problems was admitted this morning with shortness of breath ,chest pain. Patient has history of recurrent pneumonia treated in October and November 2019 First 2 sets of cardiac enzymes are negative However positive for influenza A, chest x-ray findings consistent with possible recurrent pneumonia Since seen and examined medical records reviewed Objective with the current management Cardiology, ID evaluation and recommendations noted and appreciated Closely monitor the patient and adjust management as needed Disposition; follow clinically, follow consults and recommendations Discharged in medically stable
[2019-12-10] MEDS: hydrALAZINE 20 MG/1 ML INJ IV PRN ×2 (02:13→11:25)
[2019-12-10] MEDS: ALBUTEROL 2.5 MG/3 ML NEBU IH PRN ×2 (03:20→10:37)
[2019-12-10] MEDS ORDERED: methylPREDNISolone Sod Succinate 40 MG/1 ML INJ IV SCH (10:00)
[2019-12-10] MEDS: OSELTAMIVIR 75 MG CAP PO SCH ×2 (10:19→21:32)
[2019-12-10] MEDS: ENOXAPARIN 40 MG/0.4 ML INJ SUB-Q SCH (10:19)
[2019-12-10] MEDS: FAMOTIDINE 20 MG TAB PO SCH (10:19)
--- NOTE | 2019-12-10 10:57 | Progress Note ---
Assessment and Plan AMI ruled out. Pt's chest pain appears pleuritic in etiology. Pt with influenza, suspected PNA and asthma exacerbation. ID following. Await echo. Pt is noted to be anxious, SOB and with significant wheezing on evaluation. Will defer stress testing at this time until medically stabilized - could be done as OP. Further eval/management of respiratory issues per primary. D/w Dr. Arita. The patient has been seen in conjunction with Dr. Jordan who agrees with the assessment and plan of care. - Patient Problems (1) Chest pain Current Visit: Yes Status: Acute (2) Influenza Current Visit: Yes Status: Acute (3) Pneumonia Current Visit: Yes Status: Suspected (4) Asthma exacerbation Current Visit: Yes Status: Acute (5) CAD (coronary artery disease) Current Visit: Yes Status: Chronic (6) Stented coronary artery Current Visit: Yes Status: Chronic (7) HTN (hypertension) Current Visit: Yes Status: Chronic (8) Tobacco use Current Visit: Yes Status: Chronic Subjective Date of service: 12/10/19 Principal diagnosis: influenza; asthma Interval history: pt resting in bed, anxious, noted to be SOB and with significant wheezing, requesting breathing treatment. Objective Last Vital Signs Temp 98.7 F 12/10/19 04:59 Pulse 82 12/10/19 10:41 Resp 22 12/10/19 10:41 BP 180/99 12/10/19 04:59 Pulse Ox 99 12/10/19 10:43 - Physical Examination General: Other (anxious, wheezing, sob) HEENT: Positive: PERRL, Normocephaly, Mucus Membranes Moist Neck: Positive: neck supple, trachea midline Cardiac: Positive: Reg Rate and Rhythm, S1/S2 Lungs: Positive: Decreased Breath Sounds, Wheezes, Oxygen Neuro: Positive: Grossly Intact Abdomen: Negative: Tender Skin: Negative: Rash Musculoskeletal: No Pain Extremities: Absent: edema - Imaging and Cardiology EKG: report reviewed, image reviewed Echo: pending - EKG Sinus rhythms and dysrhythmias: sinus rhythm
[2019-12-10] MEDS ORDERED: MORPHINE 4 MG/1 ML INJ IV ONE (11:15)
[2019-12-10] MEDS ORDERED: methylPREDNISolone Sod Succinate 125 MG/2 ML INJ IV SCH ×3 (12:00→14:00)
--- NOTE | 2019-12-10 13:52 | Progress Note ---
Assessment and Plan Cultures: 12/08/2019 Rapid influenza: Positive for influenza B A/P: 44-year-old female with coronary artery disease, hypertension, asthma, tobacco abuse with: #Influenza B #Pneumonia: CXR with small right sided perihilar infiltrate. #Acute respiratory failure, asthma exacerbation: on oxygen, nebs #Morbid obesity #Tobacco abuse Recs: Complete total 5 days of PO Tamiflu procalcitonin is low, levofloxacin discontinued. PO Azithromycin 500 mg daily x 3 days ordered to cover atypicals and its anti-inflammatory effect Олег Hall MD, FACP [facility] C: [phone] O: [phone] F: [phone] Subjective Date of service: 12/10/19 Principal diagnosis: influenza; asthma Interval history: SOB better, but on BiPAP. No fever. No vomiting. Objective - Exam Narrative Exam: Physical Exam: Constitutional: Alert, cooperative. No acute distress. Obese Head, Ears, Nose: Normocephalic, atraumatic. External ears, nose normal Eyes: Conjunctivae/corneas clear. No icterus. No ptosis. Neck: Supple, no meningeal signs Oral: BiPAP Cardiovascular: S1, S2 normal. Respiratory: b/l wheezes + GI: Soft, non-tender; bowel sounds normal. No peritoneal signs Musculoskeletal: No pedal edema, no cyanosis. Skin: No rash or abscess Hem/Lymphatic: No palpable cervical or supraclavicular nodes. No lymphangitis Psych: Mood ok. Affect normal Neurological: Awake, alert, oriented. No gross abnormality - Constitutional Vitals: Vital Signs Temp Pulse Resp BP Pulse Ox 99.2 F 92 H 24 187/114 96 12/10/19 11:19 12/10/19 11:19 12/10/19 12:56 12/10/19 11:19 12/10/19 12:56 Temperature -Last 24 Hours Temperature 99.2 F Temperature 98.7 F Temperature 98.3 F Temperature 98.7 F Temperature 98.7 F - Labs CBC & Chem 7: 12/08/19 22:44 12/08/19 22:44
[2019-12-10] MEDS: IPRATROPIUM/ALBUTEROL SULFATE 3 ML AMPUL.NEB IH SCH ×2 (14:08→20:16)
[2019-12-10] MEDS ORDERED: NON-FORMULARY EACH (Lisinopril/Hydrochlorothiazide 10 MG) PO SCH (14:15)
[2019-12-10] MEDS: LISINOPRIL 10 MG TAB PO SCH (17:34)
[2019-12-10] MEDS: guaiFENesin ER 600 MG TAB PO SCH ×2 (17:35→21:31)
[2019-12-10] MEDS: hydroCHLOROthiazide 12.5 MG CAP PO SCH (17:35)
[2019-12-10] MEDS: AZITHROMYCIN 250 MG TAB PO SCH (17:35)
[2019-12-10] MEDS ORDERED: ENALAPRILAT 2.5 MG/2 ML INJ IV ONE (18:37)
--- NOTE | 2019-12-10 18:38 | Progress Note ---
Assessment and Plan Assessment and plan: Patient is a 44-year-old female with a past medical history of CAD, hypertension and asthma whom presents to ER with complaints of chest pain and shortness of breath x3 days. [facility] and discharged same day for similar symptoms. Patient describes her midsternal chest pain as sharp, non-radiating and rates it 7 out of 10. She denies palpitation, lightheadedness, syncope or loss of consciousness. * Patient has a history of recurrent pneumonia in October and November 2019 * Influenza testing is positive with x-ray suspicious for possible viral pneumonia * Recommend that the patient have a repeat imaging study outpatient Acute chest pain likely secondary to pneumonia (CAP) -Portable chest x-ray suspicious for Recurrent pneumonia; Levaquin empirical -Continue serial troponin level monitoring due to history of CAD -PO Azithromycin 500 mg daily x 3 days ordered to cover atypicals and its anti- inflammatory effect -Cardiology consulted Acute respiratory failure likely secondary to pneumonia and influenza a in addition to substance abuse including tobacco use. -Nebulizer treatment -Patient on BiPAP at this time Influenza A -cont Tamiflu CAD- STENTED IN THE PAST Morbid obesity -Extensive counseling Hypertension -Stable -Resume home meds once reconciled Asthma -No acute exacerbation -On neb tx Obesity with BMI of 41.8 -Lifestyle modification recommended Polysubstance abuse (tobacco or marijuana) -Patient counseled on cessation DVT -SCD bilateral -prophylaxis with Lovenox History Interval history: Patient seen and examined this morning reports some increased shortness of breath overnight not improving following administration of BiPAP. She was able to ambulate to the bathroom with BiPAP on. No other adverse event reported to [place] Hospitalist Physical - Physical exam Narrative exam: VITAL SIGNS: Reviewed. GENERAL: The patient appears normally developed, morbidly obese vital signs as documented. HEAD: No signs of head trauma. EYES: Pupils are equal. Extraocular motions intact. EARS: Hearing grossly intact. MOUTH: Oropharynx is normal. NECK: No adenopathy, no JVD. CHEST: Chest with expiratory wheeze breath sounds bilaterally. No rales, or rhonchi. CARDIAC: Regular rate and rhythm. S1 and S2, without murmurs, gallops, or rubs. VASCULAR: No Edema. Peripheral pulses normal and equal in all extremities. ABDOMEN: Soft, non tender and non distended. No rebound or guarding, and no masses palpated. Bowel Sounds normal. MUSCULOSKELETAL: Good range of motion of all major joints. Extremities without clubbing, cyanosis or edema. NEUROLOGIC EXAM: Alert and oriented x 3 No focal sensory or strength deficits. Speech normal. Follows commands. PSYCHIATRIC: Mood normal. SKIN: detail exam as documented in skin assessment - Constitutional Vitals: Temp Pulse Resp BP Pulse Ox 98.5 F 87 18 157/118 94 12/10/19 16:46 12/10/19 17:34 12/10/19 16:46 12/10/19 17:34 12/10/19 16:46 General appearance: Present: no acute distress Results - Labs CBC & Chem 7: 12/08/19 22:44 12/08/19 22:44 Labs: Laboratory Last Values WBC 8.0 K/mm3 (4.5-11.0) 12/08/19 22:44 RBC 4.67 M/mm3 (3.65-5.03) 12/08/19 22:44 Hgb 11.1 gm/dl (10.1-14.3) 12/08/19 22:44 Hct 33.9 % (30.3-42.9) 12/08/19 22:44 MCV 73 fl (79-97) L 12/08/19 22:44 MCH 24 pg (28-32) L 12/08/19 22:44 MCHC 33 % (30-34) 12/08/19 22:44 RDW 19.5 % (13.2-15.2) H 12/08/19 22:44 Plt Count 224 K/mm3 (140-440) 12/08/19 22:44 Lymph % (Auto) 8.0 % (13.4-35.0) L 12/08/19 22:44 [place] % (Auto) 9.5 % (0.0-7.3) H 12/08/19 22:44 Eos % (Auto) 0.2 % (0.0-4.3) 12/08/19 22:44 Baso % (Auto) 0.2 % (0.0-1.8) 12/08/19 22:44 Lymph # 0.6 K/mm3 (1.2-5.4) L 12/08/19 22:44 [place] # 0.8 K/mm3 (0.0-0.8) 12/08/19 22:44 Eos # 0.0 K/mm3 (0.0-0.4) 12/08/19 22:44 Baso # 0.0 K/mm3 (0.0-0.1) 12/08/19 22:44 Seg Neutrophils % 82.1 % (40.0-70.0) H 12/08/19 22:44 Seg Neutrophils # 6.6 K/mm3 (1.8-7.7) 12/08/19 22:44 PT 13.5 Sec. (12.2-14.9) 12/08/19 22:44 INR 1.02 (0.87-1.13) 12/08/19 22:44 Sodium 134 mmol/L (137-145) L 12/08/19 22:44 Potassium 4.1 mmol/L (3.6-5.0) 12/08/19 22:44 Chloride 97.0 mmol/L (98-107) L 12/08/19 22:44 Carbon Dioxide 24 mmol/L (22-30) 12/08/19 22:44 Anion Gap 17 mmol/L 12/08/19 22:44 BUN 14 mg/dL (7-17) 12/08/19 22:44 Creatinine 0.7 mg/dL (0.7-1.2) 12/08/19 22:44 Estimated GFR > 60 ml/min 12/08/19 22:44 BUN/Creatinine Ratio 20 % 12/08/19 22:44 Glucose 94 mg/dL (65-100) 12/08/19 22:44 Calcium 8.8 mg/dL (8.4-10.2) 12/08/19 22:44 Total Bilirubin 0.20 mg/dL (0.1-1.2) 12/08/19 22:44 AST 26 units/L (5-40) 12/08/19 22:44 ALT 18 units/L (7-56) 12/08/19 22:44 Alkaline Phosphatase 58 units/L (35-129) 12/08/19 22:44 Total Creatine Kinase 290 units/L (30-135) H 12/09/19 07:31 CK-MB (CK-2) 3.4 ng/mL (0.0-4.0) 12/09/19 07:31 CK-MB (CK-2) Rel Index 1.1 (0-4) 12/09/19 07:31 Troponin T < 0.010 ng/mL (0.00-0.029) 12/09/19 15:46 NT-Pro-B Natriuret Pep 239.7 pg/mL (0-450) 12/08/19 22:44 Total Protein 7.0 g/dL (6.3-8.2) 12/08/19 22:44 Albumin 3.6 g/dL (3.9-5) L 12/08/19 22:44 Albumin/Globulin Ratio 1.1 % 12/08/19 22:44 Procalcitonin < 0.05 ng/mL (<0.15) 12/10/19 05:58 HCG, Qual Negative (Negative) 12/08/19 22:44 Influenza A (Rapid) Negative (Negative) 12/08/19 23:20 Influenza B (Rapid) Positive (Negative) A 12/08/19 23:20 Active Medications - Current Medications Current Medications: Generic Name Dose Route Start Last Admin Trade Name Freq PRN Reason Stop Dose Admin Acetaminophen 650 mg 12/09/19 01:01 12/09/19 08:14 Tylenol PO 650 mg Q4H PRN Administration Pain MILD(1-3)/Fever >100.5/SOLIS Albuterol 2.5 mg 12/09/19 01:01 12/10/19 10:37 Proventil IH 2.5 mg Q4HRT PRN Administration Shortness Of Breath Albuterol/Ipratropium 1 ampul 12/10/19 14:00 12/10/19 14:08 Duoneb *Not For Prn Use* IH 1 ampul TIDRT JUAN DAVID Administration Arformoterol Tartrate 15 mcg 12/10/19 20:00 Brovana Nebu IH Q12HRT JUAN DAVID Azithromycin 500 mg 12/10/19 14:00 12/10/19 17:35 Zithromax PO 12/13/19 13:59 500 mg QDAY JUAN DAVID Administration Enoxaparin Sodium 40 mg 12/09/19 10:00 12/10/19 10:19 Enoxaparin SUB-Q 40 mg QDAY@1000 JUAN DAVID Administration Famotidine 20 mg 12/09/19 18:00 12/10/19 10:19 Pepcid PO 20 mg QDAY JUAN DAVID Administration Guaifenesin 600 mg 12/10/19 15:00 12/10/19 17:35 Mucinex Er PO 600 mg BID JUAN DAVID Administration Hydralazine HCl 10 mg 12/10/19 01:14 12/10/19 11:25 Apresoline IV 10 mg Q4HR PRN Administration Hypertension Hydrochlorothiazide 12.5 mg 12/10/19 15:00 12/10/19 17:35 Hctz PO 12.5 mg QDAY JUAN DAVID Administration Lisinopril 10 mg 12/10/19 15:00 12/10/19 17:34 Zestril PO 10 mg QDAY JUAN DAVID Administration Ondansetron HCl 4 mg 12/09/19 01:01 12/09/19 22:04 Zofran IV 4 mg Q8H PRN Administration Nausea And Vomiting Oseltamivir Phosphate 75 mg 12/09/19 01:00 12/10/19 10:19 Tamiflu PO 12/13/19 10:01 75 mg BID JUAN DAVID Administration Oxycodone/Acetaminophen 1 tab 12/10/19 14:11 Percocet 5/325 PO Q6H PRN Pain, Moderate (4-6) Sodium Chloride 10 ml 12/09/19 10:00 12/10/19 10:19 Sodium Chloride Flush Syringe 10 Ml IV 10 ml BID JUAN DAVID Administration Sodium Chloride 10 ml 12/09/19 01:01 Sodium Chloride Flush Syringe 10 Ml IV PRN PRN LINE FLUSH
[2019-12-10] MEDS: oxyCODONE /ACETAMINOPHEN 5-325MG TAB PO PRN (20:07)
[2019-12-10] MEDS: ARFORMOTEROL 15 MCG/2 ML NEBU IH SCH (20:16)
[2019-12-10] MEDS: methylPREDNISolone Sod Succinate 125 MG/2 ML INJ IV SCH (21:31)
[2019-12-11] MEDS ORDERED: METOCLOPRAMIDE 10 MG/2 ML INJ IV ONE (00:15)
[2019-12-11] MEDS: oxyCODONE /ACETAMINOPHEN 5-325MG TAB PO PRN ×2 (04:23→11:52)
[2019-12-11] MEDS: methylPREDNISolone Sod Succinate 125 MG/2 ML INJ IV SCH ×2 (05:33→14:07)
[2019-12-11] MEDS: hydrALAZINE 20 MG/1 ML INJ IV PRN (05:34)
[2019-12-11] MEDS: ARFORMOTEROL 15 MCG/2 ML NEBU IH SCH (08:41)
[2019-12-11] MEDS: IPRATROPIUM/ALBUTEROL SULFATE 3 ML AMPUL.NEB IH SCH ×2 (08:41→13:39)
[2019-12-11] MEDS: ENOXAPARIN 40 MG/0.4 ML INJ SUB-Q SCH (10:24)
[2019-12-11] MEDS: AZITHROMYCIN 250 MG TAB PO SCH (10:24)
[2019-12-11] MEDS: LISINOPRIL 10 MG TAB PO SCH (10:24)
[2019-12-11] MEDS: FAMOTIDINE 20 MG TAB PO SCH (10:25)
[2019-12-11] MEDS: hydroCHLOROthiazide 12.5 MG CAP PO SCH (10:25)
[2019-12-11] MEDS: guaiFENesin ER 600 MG TAB PO SCH (10:25)
[2019-12-11] MEDS: OSELTAMIVIR 75 MG CAP PO SCH (10:44)
--- NOTE | 2019-12-11 10:49 | Progress Note ---
Assessment and Plan Echo reviewed - EF 55-60%, no significant abnormalities. AMI ruled out. Pt's chest pain appears pleuritic in etiology. Pt with acute resp failure, influenza, suspected PNA and asthma exacerbation. ID following. Consider stress testing once respiratory status improves. The patient has been seen in conjunction with Dr. Jordan who agrees with the assessment and plan of care. - Patient Problems (1) Chest pain Current Visit: Yes Status: Acute (2) Acute respiratory failure Current Visit: Yes Status: Acute (3) Influenza Current Visit: Yes Status: Acute (4) Pneumonia Current Visit: Yes Status: Suspected (5) Asthma exacerbation Current Visit: Yes Status: Acute (6) CAD (coronary artery disease) Current Visit: Yes Status: Chronic (7) Stented coronary artery Current Visit: Yes Status: Chronic (8) HTN (hypertension) Current Visit: Yes Status: Chronic (9) Tobacco use Current Visit: Yes Status: Chronic Subjective Date of service: 12/11/19 Principal diagnosis: influenza; asthma Interval history: pt resting in bed, on BiPAP, appears more comfortable today, states she is feeling better. no current chest pain. Objective Last Vital Signs Temp 98.8 F 12/11/19 04:37 Pulse 85 12/11/19 10:24 Resp 16 12/11/19 08:30 BP 130/83 12/11/19 10:24 Pulse Ox 95 12/11/19 04:37 - Physical Examination General: Other (on bipap) HEENT: Positive: PERRL, Normocephaly, Mucus Membranes Moist Neck: Positive: neck supple, trachea midline Cardiac: Positive: Reg Rate and Rhythm, S1/S2 Lungs: Positive: Decreased Breath Sounds, Oxygen Neuro: Positive: Grossly Intact Abdomen: Negative: Tender Skin: Negative: Rash Musculoskeletal: No Pain Extremities: Absent: edema - Imaging and Cardiology EKG: report reviewed, image reviewed Echo: report reviewed - Telemetry EKG Rhythm: Sinus Rhythm - EKG Sinus rhythms and dysrhythmias: sinus rhythm
--- NOTE | 2019-12-11 14:04 | Progress Note ---
Assessment and Plan Cultures: 12/08/2019 Rapid influenza: Positive for influenza B A/P: 44-year-old female with coronary artery disease, hypertension, asthma, tobacco abuse with: #Influenza B #Pneumonia: CXR with small right sided perihilar infiltrate. Low procalcitonin. #Acute respiratory failure, asthma exacerbation: on oxygen, nebs. #Morbid obesity #Tobacco abuse Recs: Complete total 5 days of PO Tamiflu PO Azithromycin 500 mg daily x 2 more days Олег Hall MD, FACP [facility] C: [phone] O: [phone] F: [phone] Subjective Date of service: 12/11/19 Principal diagnosis: influenza; asthma Interval history: No fever. SOB present but gradually improving. No diarrhea, no rash. Objective - Exam Narrative Exam: Physical Exam: Constitutional: Alert, cooperative. No acute distress. Obese Head, Ears, Nose: Normocephalic, atraumatic. External ears, nose normal Eyes: Conjunctivae/corneas clear. No icterus. No ptosis. Neck: Supple, no meningeal signs Oral: no thrush Cardiovascular: S1, S2 normal. Respiratory: b/l wheezes + with improving air entry GI: Soft, non-tender; bowel sounds normal. No peritoneal signs Musculoskeletal: No pedal edema, no cyanosis. Skin: No rash or abscess Hem/Lymphatic: No palpable cervical or supraclavicular nodes. No lymphangitis Psych: Mood ok. Affect normal Neurological: Awake, alert, oriented. No gross abnormality - Constitutional Vitals: Vital Signs Temp Pulse Resp BP Pulse Ox 97.8 F 87 18 195/105 95 12/11/19 11:37 12/11/19 11:37 12/11/19 13:03 12/11/19 11:37 12/11/19 13:03 Temperature -Last 24 Hours Temperature 97.8 F Temperature 98.8 F Temperature 98.4 F Temperature 98.5 F - Labs CBC & Chem 7: 12/08/19 22:44 12/08/19 22:44
[2019-12-11] MEDS ORDERED: hydrALAZINE 20 MG/1 ML INJ IV PRN (14:35)
--- NOTE | 2019-12-11 14:36 | Discharge Summary ---
Providers - Providers Date of Admission: 12/09/19 02:59 Attending physician: LESTER OTT MD 12/09/19 01:01 Consult to Physician [CONS] Routine Comment: Consulting Provider: ALESHA RICO Physician Instructions: Reason For Exam: chest pain 12/09/19 10:54 Consult to Physician [CONS] Routine Comment: Consulting Provider: JOAN HEREDIA Physician Instructions: Reason For Exam: InfluenzaA/Pneumonia Primary care physician: [employer] HELPER Hospitalization Condition: Stable Hospital course: Patient is a 44-year-old female with a past medical history of CAD, hypertension and asthma whom presents to ER with complaints of chest pain and shortness of breath x3 days. Patient was recently seen at [facility]12/05/2019 and discharged same day for similar symptoms. Patient describes her midsternal chest pain as sharp, non-radiating and rates it 7 out of 10. She denies palpitation, lightheadedness, syncope or loss of consciousness. * Patient has a history of recurrent pneumonia in October and November 2019 * Influenza testing is positive with x-ray suspicious for possible viral pneumonia * Recommend that the patient have a repeat imaging study outpatient Acute chest pain likely secondary to pneumonia (CAP) -Portable chest x-ray suspicious for Recurrent pneumonia; Levaquin empirical -Continue serial troponin level monitoring due to history of CAD -PO Azithromycin 500 mg daily x 3 days ordered to cover atypicals and its anti- inflammatory effect -Cardiology consulted Acute respiratory failure likely secondary to pneumonia and influenza a in addition to substance abuse including tobacco use. -Nebulizer treatment -Patient on BiPAP at this time Influenza A -cont Tamiflu CAD- STENTED IN THE PAST Morbid obesity -Extensive counseling Hypertension -Stable -Resume home meds once reconciled Repeat systolic bp 150 meds adjusted Asthma -No acute exacerbation -On neb tx Obesity with BMI of 41.8 -Lifestyle modification recommended Polysubstance abuse (tobacco or marijuana) -Patient counseled on cessation DVT -SCD bilateral -prophylaxis with Lovenox Complete total 5 days of PO Tamiflu PO Azithromycin 500 mg daily x 2 more days Disposition: -01 TO HOME OR SELFCARE Time spent for discharge: 35 mins Exam - Constitutional Vitals: Temp Pulse Resp BP Pulse Ox 97.8 F 87 18 195/105 95 12/11/19 11:37 12/11/19 11:37 12/11/19 13:03 12/11/19 11:37 12/11/19 13:03 Plan Activity: advance as tolerated (no sternous activity till evaluated by cardiology outpatient), up only with assistance Diet: low fat, low cholesterol Special Instructions: record daily weights (weightloss counselling), record daily BP diary Durable Medical Equipment Needed Upon Discharge: other (must follow pulmonary to sleep study) Follow up with: PRIMARY GEOVANNA, [Primary Care Provider] - 7 Days MAVIS HUMPHREY MD [Staff Physician] - 7 Days TOMAS PLUNKETT MD [Staff Physician] - 7 Days Forms: Work/School Release Form Prescriptions: methylPREDNISolone [Medrol 4MG DOSEPAK (21 tabs)] 4 mg PO . DIR #1 tab.ds.pk guaiFENesin ER [Mucinex ER] 600 mg PO BID #30 tablet Albuterol INH(or & Nicu Only) [ProAir HFA Inhaler] 2 puff IH QID PRN #8.5 gram PRN Reason: Shortness Of Breath Oseltamivir [Tamiflu] 75 mg PO BID #6 capsule traMADoL [Ultram] 50 mg PO Q6HR PRN #14 tablet PRN Reason: Pain Lisinopril/Hydrochlorothiazide [Zestoretic 20-25 mg] 1 tab PO QDAY #30 tab Azithromycin [Zithromax TAB] 500 mg PO QDAY #2 tablet
[2019-12-11 14:39] VITALS: BP 158/95
== END 2019-12-11 17:05 | disposition home or self-care (01) | DRG 193 ==
LOC: ED 21:18 → 4A 12-09 02:59 → 3A 12-09 11:55
PROVIDERS: ADMIT Internal Medicine Geriatric Medicine; ATTEND Internal Medicine
PROC: 5A09357 Assistance with Respiratory Ventilation, Less than 24 Consecutive Hours, Continuous Positive Airway Pressure (ICD-10-PCS; principal; 2019-12-10)
PROC: 5A09357 Assistance with Respiratory Ventilation, Less than 24 Consecutive Hours, Continuous Positive Airway Pressure (ICD-10-PCS; 2019-12-11)
DX: J10.08 Influenza due to other identified influenza virus with other specified pneumonia (principal); J96.00 Acute respiratory failure, unspecified whether with hypoxia or hypercapnia; Z68.41 Body mass index [BMI] 40.0-44.9, adult; J45.901 Unspecified asthma with (acute) exacerbation; I10 Essential (primary) hypertension; I25.10 Atherosclerotic heart disease of native coronary artery without angina pectoris; E66.01 Morbid (severe) obesity due to excess calories; F12.10 Cannabis abuse, uncomplicated; I25.2 Old myocardial infarction; Z87.891 Personal history of nicotine dependence; Z95.5 Presence of coronary angioplasty implant and graft
CPT/HCPCS: 36415; 71045; 80053; 82550; 82553; 83880; 84145; 84484; 84703; 85025; 85610; 87400; 93005; 93010; 93306; 94640; 94644; 94660; 94760; G0378; J0360; J1650; J1956; J2270; J2405; J2920; J2930; J3010